=== PATIENT | male | born 1945 | race Caucasian/White ===

== ENCOUNTER 2017-02-04 13:33 | Emergency (ER) | payer MEDICARE, OTHER ==
[~2017-02-04] VITALS: Ht 185.4 cm; Wt 100.0 kg
[~2017-02-04 13:33] MED LIST: ADLT ASA LOW81 MG PO; ALBUTEROL S2.5 MG/.5 IN; ALPRAZOLAM0.5 M1 PO; CENTRUM SILVER PO; CRESTOR40 MG PO; DILTIAZEM180 MG PO; FISH OIL1200 M1 PO; FLONASE SPRAY50 MCG; ISOSORB MONO30 MG PO; KEFLEX500 MG PO; LORTAB 10 PO; LORTAB 5/3255 MG PO; LOVAZA1 GM OR; METO25TAB OR; NEXIUM40 M1 OR; OMEPRAZOLE20 MG PO; PREVPAC PO; SERTRALINE HCL100 MG PO; SERTRALINE HCL50 MG PO; SPIRIVA HANDIHALER IN; SYMBICORT 80-4.5MCG IN; TYLENOL # 31 TAB PO; VENTOLIN HFA IN; ZETIA10 MG OR
[2017-02-04 15:09] VITALS: BP 113/54
== END 2017-02-04 15:19 | disposition home or self-care (01) ==
LOC: ED 13:33
PROC: 0HQDXZZ Repair Right Lower Arm Skin, External Approach (ICD-10-PCS; principal; 2017-02-04)
DX: S51.011A Laceration without foreign body of right elbow, initial encounter (principal); J44.9 Chronic obstructive pulmonary disease, unspecified; I10 Essential (primary) hypertension; I25.2 Old myocardial infarction; I25.10 Atherosclerotic heart disease of native coronary artery without angina pectoris; E03.9 Hypothyroidism, unspecified; V00.811A Fall from moving wheelchair (powered), initial encounter; Y92.89 Other specified places as the place of occurrence of the external cause; Z95.0 Presence of cardiac pacemaker; Z95.1 Presence of aortocoronary bypass graft; Z95.5 Presence of coronary angioplasty implant and graft

== ENCOUNTER 2018-06-16 15:33 | Emergency (ER) | payer MEDICARE, OTHER ==
[~2018-06-16] VITALS: Ht 185.4 cm; Wt 95.5 kg
[2018-06-16 16:23] LABS: HEMATOCRIT 38.1 % (39.0-50.0); HEMOGLOBIN 12.5 g/dl (14.0-18.0); IMMATURE GRANULOCYTES 0.5 % (0.0-5.0); MEAN CELL VOLUME 89.2 fL CALC (80.0-100.0); MEAN CORPUSCULAR HGB 29.3 pG CALC (26.0-32.0); MEAN CORPUSCULAR HGB CONC 32.8 g/L CALC (32.0-36.0); NEUT# 8.78 thou/uL (1.82-7.42); RED BLOOD COUNT 4.27 mill/uL (4.70-6.10); RED CELL DISTRI WIDTH 13.4 % (11.5-15.5)
[2018-06-16 16:34] LABS: ALKALINE PHOSPHATASE 55 u/l (38-126); ANION GAP 17 (6-22 (CALC)); BILIRUBIN, TOTAL 1.2 mg/dL (0.0-1.4); BUN 22 mg/dL (8-23); BUN/CREATININE RATIO 27 (12-20 (CALC)); CARBON DIOXIDE 27 mmol/l (22-30); CHLORIDE 102 mmol/l (95-108); CREATININE 0.8 mg/dL (0.7-1.3); GFR > 60 ML/MIN (>=60 (CALC)); GFR FOR AFR.AMER. > 60 ML/MIN (>=60 (CALC)); POTASSIUM 4.1 mmol/l (3.5-5.1); SODIUM 141 mmol/l (137-146)
[2018-06-16 16:36] LABS: ALBUMIN 4.7 g/dL (3.2-5.0); SGOT/AST 24 u/l (19-48); TOTAL PROTEIN 7.7 g/dL (6.3-8.2)
[2018-06-16 22:45] VITALS: BP 148/65
== END 2018-06-16 22:45 ==
LOC: ED 15:33
PROVIDERS: Emergency Medicine
DX: I50.9 Heart failure, unspecified (principal); I21.4 Non-ST elevation (NSTEMI) myocardial infarction; J44.1 Chronic obstructive pulmonary disease with (acute) exacerbation; J18.9 Pneumonia, unspecified organism; I49.9 Cardiac arrhythmia, unspecified; R06.02 Shortness of breath; R07.9 Chest pain, unspecified; R60.0 Localized edema; I25.2 Old myocardial infarction; I10 Essential (primary) hypertension; I25.810 Atherosclerosis of coronary artery bypass graft(s) without angina pectoris; Z95.1 Presence of aortocoronary bypass graft; Z95.5 Presence of coronary angioplasty implant and graft
CPT/HCPCS: J0282; J3475